=== PATIENT | male | born 1950 | race Caucasian/White ===

== ENCOUNTER → 2016-04-16 | Outpatient (REF) | payer MEDICARE ==
[~2016-04-16] MED LIST: ADV250-14 IH; ALBU0.63 IH; ALBU8.5H2 IH; ALBU8CC INH; ALPR.5T PO; ALPR0.25 PO; ASPI-504 PO; ASPI-860 PO; BUDE0.253 INH; BUDE0.5A5 IH; BUDE6HFA IH; CEFD300C9 PO; CODE-54 PO; CODE118S2 PO; CPR500T PO; DIGO125T PO; DIPH25TA31 PO; DOCU100C8 PO; FERR-74 PO; FLUT1DIS3 IH; FRS325T PO; FURO20TA4 PO; HYDR-2013 PO; IMMODIUM PO; IPRA0.2S50 IH; IPRA3AMP11 INH; ISM30TCR PO; LOPE1LIQ7 PO; LOPE2CAP29 PO; LVT.05T PO; METR500T PO; METR500T17 PO; NF-XOP-HFA INH; NITR0.4T SL; NIVO100V IV; OMEP20CA6 PO; ONDA8TAB6 SL; PHEN300C4 PO; PHEN50TA4 PO; PHN100C PO; POTA-57 PO; PRAS10TA6 PO; PRD10T PO; PRD20T PO; PRIM250T PO; PRIM50TA PO; PRIMIDONE PO; PRV20T PO; TIOT18CA IH; VENL150T PO; VENL225T PO; VENL75TA6 PO; VNL75CCR PO; WARF10TA PO; WARF2TAB PO; WARF2TAB6 PO; WARF4TAB PO; WARF5TAB PO; WARF5TAB6 PO; WARF6TAB6 PO; WARF7.5T PO; WRF5T PO
[2016-04-16 16:58] LABS: MEAN CORPUSCULAR HGB CONC 33.5 g/dL (31.0-37.0); PLATELET COUNT 270 10^3uL (150-450); WHITE BLOOD COUNT 6.24 10^3uL (4.0-11.0)
[2016-04-16 17:18] LABS: MEAN CORPUSCULAR HEMOGLOBIN 32.7 PG (26.0-34.0); MEAN CORPUSCULAR VOLUME 98 FL (80-100)
[2016-04-16 17:26] LABS: BAND NEUTROPHILS % 0 % (0-6); EOSINOPHILS % 4 % (0-4); MONOCYTES # 0.6 #; MONOCYTES % 10 % (3-11); RBC MORPH NORMAL (NORMAL); SEGMENTED NEUTROPHILS % 70 % (51-67); TOTAL CELLS COUNTED 100
== END ==
LOC: LAB 13:07
PROVIDERS: ATTEND Internal Medicine Hematology & Oncology
DX: C34.12 Malignant neoplasm of upper lobe, left bronchus or lung (principal)
CPT/HCPCS: 85007; 85027

== ENCOUNTER → 2016-04-23 | Outpatient (REF) | payer MEDICARE ==
[2016-04-23 15:11] LABS: WHITE BLOOD COUNT 6.02 10^3uL (4.0-11.0)
[2016-04-23 15:12] LABS: MEAN CORPUSCULAR HGB CONC 34.2 g/dL (31.0-37.0); MEAN CORPUSCULAR VOLUME 97 FL (80-100); MEAN PLATELET VOLUME 10.2 FL (6.0-9.5); PLATELET COUNT 233 10^3uL (150-450)
[2016-04-23 15:22] LABS: ALBUMIN 4.3 g/dL (3.4-5.0); ANION GAP 17.6 MEQ/L (3-15); CALCULATED IONIZED CALCIUM 3.7 mg/dL (3.8-4.6); TOTAL PROTEIN 8.3 g/dL (6.4-8.5)
[2016-04-23 15:27] LABS: MEAN CORPUSCULAR HEMOGLOBIN 33.2 PG (26.0-34.0)
[2016-04-23 15:41] LABS: BAND NEUTROPHILS % 6 % (0-6); SEGMENTED NEUTROPHILS % 58 % (51-67)
[2016-04-23 15:42] LABS: EOSINOPHILS % 1 % (0-4); LYMPHOCYTES # 1.3 #; MONOCYTES # 0.8 #; MONOCYTES % 13 % (3-11); RBC MORPH NORMAL (NORMAL); TOTAL CELLS COUNTED 100
== END ==
LOC: LAB 13:47
PROVIDERS: ATTEND Internal Medicine Hematology & Oncology
DX: C34.12 Malignant neoplasm of upper lobe, left bronchus or lung (principal)
CPT/HCPCS: 80053; 82378; 85007; 85027

== ENCOUNTER 2016-04-26 19:32 | Emergency (ER) | payer MEDICARE ==
[~2016-04-26] VITALS: Ht 188 cm; Wt 88.2 kg
[~2016-04-26 19:32] MED LIST changes: -ADV250-14 IH; -ALBU0.63 IH; -ASPI-860 PO; -BUDE0.253 INH; -BUDE0.5A5 IH; -CODE-54 PO; -CPR500T PO; -IPRA0.2S50 IH; -IPRA3AMP11 INH; -LVT.05T PO; -METR500T17 PO; -NIVO100V IV; -PRD10T PO; -PRD20T PO; -VENL75TA6 PO; -WARF6TAB6 PO; -WRF5T PO
[2016-04-26] MEDS ORDERED: WARF6TAB6 PO (19:59)
[2016-04-26] MEDS ORDERED: PRD10T PO (20:00)
[2016-04-26] MEDS ORDERED: IPRA0.2S50 IH (20:00)
[2016-04-26] MEDS ORDERED: BUDE0.253 INH (20:01)
[2016-04-26] MEDS ORDERED: ASPI-860 PO (20:01)
[2016-04-26] MEDS ORDERED: ALBU0.63 IH (20:01)
[2016-04-26 20:34] LABS: BASOPHILS % (AUTO) 0 % (0-2); EOSINOPHILS % (AUTO) 1 % (0-4); LYMPHOCYTES # (AUTO) 1.2 X10^3; MEAN CORPUSCULAR HGB CONC 33.4 g/dL (31.0-37.0); MEAN CORPUSCULAR VOLUME 97 FL (80-100); MEAN PLATELET VOLUME 10.2 FL (6.0-9.5); MONOCYTES # (AUTO) 0.4 X10^3; MONOCYTES % (AUTO) 7 % (3-11); NEUTROPHILS # (AUTO) 4.4 X10^3; NEUTROPHILS % (AUTO) 73 % (51-67); PLATELET COUNT 204 10^3uL (150-450); WHITE BLOOD COUNT 6.03 10^3uL (4.0-11.0)
[2016-04-26 20:38] LABS: MEAN CORPUSCULAR HEMOGLOBIN 32.3 PG (26.0-34.0)
--- NOTE | 2016-04-26 20:59 | Diagnostic Imaging Report ---
INDICATION: Cough and shortness of breath. History of lungs CA. EXAMINATION: Two views of the chest were obtained. COMPARISON: 02/22/2016. FINDINGS: Median sternotomy changes are again noted. Surgical changes are present with volume loss in the left upper lung with left apical pleural scarring. Left lower lung is well aerated and clear. Right lung is well aerated and clear. There are no pleural effusions. The heart is not enlarged. No evidence of pulmonary edema. Port-A-Cath on the left remains in good position. IMPRESSION: Postoperative changes with left superhilar fullness and left apical scarring again noted. No acute change is demonstrated. Dictated by: Dictated on workstation # [id number]
[2016-04-26 21:31] VITALS: BP 123/64
[2016-06-12] MEDS ORDERED: WRF5T PO (16:21)
[2016-06-12] MEDS ORDERED: VENL75TA6 PO (16:21)
[2016-06-12] MEDS ORDERED: PRD20T PO (16:21)
[2016-06-12] MEDS ORDERED: CODE-54 PO (16:21)
[2016-06-12] MEDS ORDERED: IPRA3AMP11 INH (16:21)
[2016-06-12] MEDS ORDERED: LVT.05T PO (16:21)
[2016-06-12] MEDS ORDERED: BUDE0.5A5 IH (16:21)
[2016-06-12] MEDS ORDERED: NIVO100V IV (16:21)
[2016-06-12] MEDS ORDERED: ADV250-14 IH (16:21)
[2016-06-12] MEDS ORDERED: ISM30TCR PO (16:21)
[2016-06-14] MEDS ORDERED: CPR500T PO (14:42)
[2016-06-14] MEDS ORDERED: METR500T17 PO (14:42)
== END 2016-04-26 21:31 | disposition home or self-care (01) ==
LOC: ED 19:34
DX: R04.0 Epistaxis (principal); R04.2 Hemoptysis; Z79.899 Other long term (current) drug therapy; C34.90 Malignant neoplasm of unspecified part of unspecified bronchus or lung
CPT/HCPCS: 36415; 71020; 85025; 85610; 99283

== ENCOUNTER → 2016-04-30 | Outpatient (REF) | payer MEDICARE ==
[~2016-04-30] MED LIST changes: +ADV250-14 IH; +ALBU0.63 IH; +ASPI-860 PO; +BUDE0.253 INH; +BUDE0.5A5 IH; +CODE-54 PO; +CPR500T PO; +IPRA0.2S50 IH; +IPRA3AMP11 INH; +LVT.05T PO; +METR500T17 PO; +NIVO100V IV; +PRD10T PO; +PRD20T PO; +VENL75TA6 PO; +WARF6TAB6 PO; +WRF5T PO
[2016-04-30 18:19] LABS: MEAN CORPUSCULAR HGB CONC 33.9 g/dL (31.0-37.0); MEAN CORPUSCULAR VOLUME 97 FL (80-100); MEAN PLATELET VOLUME 10.5 FL (6.0-9.5); PLATELET COUNT 230 10^3uL (150-450); WHITE BLOOD COUNT 3.75 10^3uL (4.0-11.0)
[2016-04-30 18:25] LABS: MEAN CORPUSCULAR HEMOGLOBIN 32.9 PG (26.0-34.0)
[2016-04-30 18:26] LABS: BAND NEUTROPHILS % 5 % (0-6); EOSINOPHILS % 2 % (0-4); LYMPHOCYTES # 0.8 #; MONOCYTES # 0.2 #; MONOCYTES % 6 % (3-11); SEGMENTED NEUTROPHILS % 66 % (51-67); TOTAL CELLS COUNTED 100
[2016-04-30 18:28] LABS: RBC MORPH NORMAL (NORMAL)
== END ==
LOC: LAB 16:43
PROVIDERS: ATTEND Internal Medicine Hematology & Oncology
DX: C34.12 Malignant neoplasm of upper lobe, left bronchus or lung (principal)
CPT/HCPCS: 85007; 85027

== ENCOUNTER → 2016-05-06 | Outpatient (REF) | payer MEDICARE ==
[2016-05-06 13:44] LABS: MEAN CORPUSCULAR HGB CONC 34.1 g/dL (31.0-37.0); MEAN CORPUSCULAR VOLUME 96 FL (80-100); MEAN PLATELET VOLUME 10.3 FL (6.0-9.5); PLATELET COUNT 309 10^3uL (150-450); WHITE BLOOD COUNT 5.37 10^3uL (4.0-11.0)
[2016-05-06 13:47] LABS: MEAN CORPUSCULAR HEMOGLOBIN 32.7 PG (26.0-34.0)
[2016-05-06 13:49] LABS: BAND NEUTROPHILS % 0 % (0-6); EOSINOPHILS % 1 % (0-4); LYMPHOCYTES # 1.3 #; MONOCYTES # 0.3 #; MONOCYTES % 5 % (3-11); RBC MORPH NORMAL (NORMAL); SEGMENTED NEUTROPHILS % 70 % (51-67); TOTAL CELLS COUNTED 100
== END ==
LOC: LAB 13:25
PROVIDERS: ATTEND Internal Medicine Hematology & Oncology
DX: I48.91 Unspecified atrial fibrillation (principal); C34.12 Malignant neoplasm of upper lobe, left bronchus or lung
CPT/HCPCS: 85007; 85027; 85610

== ENCOUNTER → 2016-05-14 | Outpatient (REF) | payer MEDICARE ==
[2016-05-14 17:53] LABS: MEAN PLATELET VOLUME 10.2 FL (6.0-9.5); PLATELET COUNT 248 10^3uL (150-450); WHITE BLOOD COUNT 4.99 10^3uL (4.0-11.0)
[2016-05-14 18:00] LABS: MEAN CORPUSCULAR VOLUME 100 FL (80-100)
[2016-05-14 18:31] LABS: ANISOCYTOSIS SLIGHT; BAND NEUTROPHILS % 4 % (0-6); EOSINOPHILS % 0 % (0-4); LYMPHOCYTES # 1.2 #; MONOCYTES # 0.1 #; MONOCYTES % 3 % (3-11); RBC MORPH SEE REFERENCE (NORMAL); SEGMENTED NEUTROPHILS % 68 % (51-67); TOTAL CELLS COUNTED 100
== END ==
LOC: LAB 16:11
PROVIDERS: ATTEND Internal Medicine Hematology & Oncology
DX: C34.12 Malignant neoplasm of upper lobe, left bronchus or lung (principal); I48.91 Unspecified atrial fibrillation
CPT/HCPCS: 85007; 85027; 85610

== ENCOUNTER → 2016-05-21 | Outpatient (REF) | payer MEDICARE ==
[2016-05-21 16:55] LABS: MEAN PLATELET VOLUME 10.6 FL (6.0-9.5); PLATELET COUNT 213 10^3uL (150-450); WHITE BLOOD COUNT 4.43 10^3uL (4.0-11.0)
[2016-05-21 17:06] LABS: MEAN CORPUSCULAR HEMOGLOBIN 33.8 PG (26.0-34.0); MEAN CORPUSCULAR VOLUME 99 FL (80-100)
[2016-05-21 17:13] LABS: BAND NEUTROPHILS % 2 % (0-6)
[2016-05-21 17:14] LABS: EOSINOPHILS % 0 % (0-4); LYMPHOCYTES # 1.3 #; MONOCYTES # 0.2 #; MONOCYTES % 5 % (3-11); SEGMENTED NEUTROPHILS % 64 % (51-67); TOTAL CELLS COUNTED 100
[2016-05-21 17:15] LABS: ANISOCYTOSIS SLIGHT; RBC MORPH SEE REFERENCE (NORMAL)
== END ==
LOC: LAB 16:20
PROVIDERS: ATTEND Internal Medicine Hematology & Oncology
DX: C34.12 Malignant neoplasm of upper lobe, left bronchus or lung (principal)
CPT/HCPCS: 85007; 85027

== ENCOUNTER → 2016-05-27 | Outpatient (REF) | payer MEDICARE ==
[2016-05-27 15:50] LABS: MEAN CORPUSCULAR HGB CONC 34.3 g/dL (31.0-37.0); MEAN PLATELET VOLUME 10.7 FL (6.0-9.5); PLATELET COUNT 219 10^3uL (150-450)
[2016-05-27 16:16] LABS: MEAN CORPUSCULAR HEMOGLOBIN 33.9 PG (26.0-34.0); MEAN CORPUSCULAR VOLUME 99 FL (80-100)
[2016-05-27 16:41] LABS: BAND NEUTROPHILS % 1 % (0-6); EOSINOPHILS % 1 % (0-4); LYMPHOCYTES # 1.1 #; MONOCYTES # 0.3 #; MONOCYTES % 10 % (3-11); SEGMENTED NEUTROPHILS % 57 % (51-67); TOTAL CELLS COUNTED 100
[2016-05-27 16:42] LABS: ANISOCYTOSIS SLIGHT; RBC MORPH SEE REFERENCE (NORMAL)
== END ==
LOC: LAB 15:34
PROVIDERS: ATTEND Internal Medicine Hematology & Oncology
DX: I62.9 Nontraumatic intracranial hemorrhage, unspecified (principal); C34.12 Malignant neoplasm of upper lobe, left bronchus or lung
CPT/HCPCS: 85007; 85027

== ENCOUNTER → 2016-06-04 | Outpatient (REF) | payer MEDICARE ==
[2016-06-04 13:40] LABS: MEAN CORPUSCULAR HGB CONC 34.3 g/dL (31.0-37.0); PLATELET COUNT 285 10^3uL (150-450); WHITE BLOOD COUNT 4.58 10^3uL (4.0-11.0)
[2016-06-04 14:16] LABS: MEAN CORPUSCULAR HEMOGLOBIN 34.5 PG (26.0-34.0); MEAN CORPUSCULAR VOLUME 101 FL (80-100)
[2016-06-04 14:17] LABS: BAND NEUTROPHILS % 8 % (0-6); EOSINOPHILS % 0 % (0-4); LYMPHOCYTES # 1.9 #; MONOCYTES # 0.6 #; MONOCYTES % 16 % (3-11); SEGMENTED NEUTROPHILS % 34 % (51-67); TOTAL CELLS COUNTED 100
[2016-06-04 14:20] LABS: ANISOCYTOSIS SLIGHT; RBC MORPH SEE REFERENCE (NORMAL)
== END ==
LOC: LAB 13:20
PROVIDERS: ATTEND Internal Medicine Cardiovascular Disease
DX: C34.12 Malignant neoplasm of upper lobe, left bronchus or lung (principal)
CPT/HCPCS: 85007; 85027

== ENCOUNTER → 2016-06-11 | Outpatient (REF) | payer MEDICARE ==
[2016-06-11 15:03] LABS: MEAN CORPUSCULAR HGB CONC 34.3 g/dL (31.0-37.0); MEAN PLATELET VOLUME 10.5 FL (6.0-9.5); PLATELET COUNT 238 10^3uL (150-450); WHITE BLOOD COUNT 9.19 10^3uL (4.0-11.0)
[2016-06-11 15:23] LABS: EOSINOPHILS % 0 % (0-4); LYMPHOCYTES # 1.1 #; MEAN CORPUSCULAR HEMOGLOBIN 34.4 PG (26.0-34.0); MEAN CORPUSCULAR VOLUME 100 FL (80-100); SEGMENTED NEUTROPHILS % 84 % (51-67)
[2016-06-11 15:25] LABS: ANISOCYTOSIS SLIGHT; BAND NEUTROPHILS % 1 % (0-6); MONOCYTES # 0.3 #; MONOCYTES % 3 % (3-11); RBC MORPH SEE REFERENCE (NORMAL); TOTAL CELLS COUNTED 100
== END ==
LOC: LAB 14:47
PROVIDERS: ATTEND Internal Medicine Hematology & Oncology
DX: I48.91 Unspecified atrial fibrillation (principal)
CPT/HCPCS: 85007; 85027; 85610

== ENCOUNTER 2016-06-12 10:35 | Inpatient (IN) | payer MEDICARE ==
[~2016-06-12] VITALS: Ht 188 cm; Wt 85.8 kg
[2016-06-12] MEDS ORDERED: D5 1/2 NS W/KCL 20 MEQ/L 1,000 ML IV SCH (12:38)
[2016-06-12] MEDS ORDERED: MAG HYDROX/AL HYDROX/SIMETH 200-200-20/5 ML (MAG-AL PLUS) 30 ML UDC PO PRN (12:40)
[2016-06-12] MEDS ORDERED: PROMETHAZINE HCL INJ 12.5 MG in SODIUM CHLORIDE 25 ML IV PRN (12:40)
[2016-06-12] MEDS ORDERED: CALCIUM CARBONATE CHEWABLE 300 MG (TUMS) TABLET PO PRN (12:40)
[2016-06-12] MEDS ORDERED: ONDANSETRON 2 MG/ML (Z0FRAN) 2 ML VIAL IV PRN (12:40)
[2016-06-12] MEDS ORDERED: ONDANSETRON 4 MG (ZOFRAN) ORAL DISSOLVE TAB PO PRN (12:40)
[2016-06-12] MEDS ORDERED: ACETAMINOPHEN 325 MG TAB (TYLENOL) PO PRN (12:40)
[2016-06-12 12:43] VITALS: BP 143/70
[2016-06-12 12:52] VITALS: BP 143/70
[2016-06-12] MEDS ORDERED: NS FLUSH 3 ML PRN IV (12:55)
[2016-06-12] MEDS ORDERED: HYDROmorphone 1 MG/ML (DILAUDID) SYRINGE IV PRN (13:30)
[2016-06-12 15:38] VITALS: BP 113/72
[2016-06-12] MEDS: CIPROFLOXACIN 400 MG/200 ML 200 ML IV SCH ×2 (16:15→22:55)
[2016-06-12] MEDS ORDERED: MAGNESIUM HYDROXIDE 80MG/ML (MILK OF MAGNESIA) 30 ML UDC PO PRN (16:45)
[2016-06-12] MEDS ORDERED: DOCUSATE SODIUM 100 MG (COLACE) CAP PO PRN (16:45)
[2016-06-12] MEDS: POLYETHYLENE GLYCOL 17 GM (MIRALAX) PACKET PO SCH (18:17)
[2016-06-12] MEDS: PRIMIDONE 50 MG PO SCH (18:29)
[2016-06-12] MEDS: FLUTICASONE/SALMETEROL HFA 115/21 MCG (ADVAIR) COMMON CANNISTER INH SCH (20:17)
[2016-06-12 20:32] VITALS: BP 110/63
[2016-06-12] MEDS: PRAVASTATIN 20 MG (PRAVACHOL) TABLET PO SCH (20:59)
[2016-06-12] MEDS: PHENYTOIN ER 100 MG (DILANTIN) CAPSULE PO SCH (20:59)
[2016-06-13 00:17] VITALS: BP 114/67
[2016-06-13 04:07] VITALS: BP 125/50
[2016-06-13] MEDS: LEVOTHYROXINE 50 MCG (LEVOTHROID) TABLET PO SCH (06:03)
[2016-06-13 06:24] LABS: BASOPHILS % (AUTO) 0 % (0-2); EOSINOPHILS # (AUTO) 0.1 10^3uL; EOSINOPHILS % (AUTO) 1 % (0-4); LYMPHOCYTES # (AUTO) 0.8 X10^3; MEAN CORPUSCULAR HGB CONC 34.2 g/dL (31.0-37.0); MEAN PLATELET VOLUME 10.5 FL (6.0-9.5); MONOCYTES # (AUTO) 0.4 X10^3; MONOCYTES % (AUTO) 9 % (3-11); NEUTROPHILS # (AUTO) 3.1 X10^3; NEUTROPHILS % (AUTO) 70 % (51-67); PLATELET COUNT 242 10^3uL (150-450); WHITE BLOOD COUNT 4.36 10^3uL (4.0-11.0)
[2016-06-13 06:47] LABS: MEAN CORPUSCULAR VOLUME 99 FL (80-100)
[2016-06-13 06:51] LABS: ALBUMIN 3.7 g/dL (3.4-5.0); ANION GAP 10.8 MEQ/L (3-15); CALCULATED IONIZED CALCIUM 3.7 mg/dL (3.8-4.6); TOTAL PROTEIN 7.6 g/dL (6.4-8.5)
[2016-06-13 07:57] VITALS: BP 101/61
[2016-06-13] MEDS: FLUTICASONE/SALMETEROL HFA 115/21 MCG (ADVAIR) COMMON CANNISTER INH SCH ×2 (09:11→20:07)
[2016-06-13] MEDS: NS FLUSH 3 ML DAILY IV SCH (10:00)
[2016-06-13] MEDS: ISOSORBIDE MONONITRATE 30 MG (IMDUR) TAB PO SCH (10:07)
[2016-06-13] MEDS: POLYETHYLENE GLYCOL 17 GM (MIRALAX) PACKET PO SCH (10:07)
[2016-06-13] MEDS: PRIMIDONE 50 MG PO SCH ×2 (10:07→18:08)
[2016-06-13] MEDS: VENlafaxine XR 75 MG (EFFEXOR XR) CAP PO SCH (10:07)
[2016-06-13] MEDS: CIPROFLOXACIN 400 MG/200 ML 200 ML IV SCH ×2 (10:08→20:38)
[2016-06-13] MEDS: NS FLUSH 10 ML PRN IV ×2 (10:08→14:43)
[2016-06-13] MEDS ORDERED: ALBUTEROL HFA (VENTOLIN HFA) COMMON CANNISTER IH PRN (10:55)
[2016-06-13] MEDS ORDERED: NITROGLYCERIN SUBLINGUAL 0.4 MG (NITROQUICK) TABLET SL PRN (10:55)
[2016-06-13 11:27] VITALS: BP 106/62
[2016-06-13 16:39] VITALS: BP 113/66
[2016-06-13] MEDS ORDERED: warFARin 5 MG (COUMADIN) TAB PO SCH (17:00)
[2016-06-13] MEDS: PHENYTOIN ER 100 MG (DILANTIN) CAPSULE PO SCH (20:39)
[2016-06-13] MEDS: PRAVASTATIN 20 MG (PRAVACHOL) TABLET PO SCH (20:39)
[2016-06-13] MEDS ORDERED: SODIUM CHLORIDE 100 ML ONE (20:43)
[2016-06-13] MEDS ORDERED: BUDESONIDE NEBS 0.5 MG/2ML (PULMICORT) AMP INH SCH (21:00)
[2016-06-13] MEDS ORDERED: ALPRAZolam 0.5 MG (XANAX) TAB PO SCH (21:00)
[2016-06-13] MEDS ORDERED: diphenhydrAMINE 25 MG (BENADRYL) TABLET PO SCH (21:00)
[2016-06-14 00:02] VITALS: BP 100/52
[2016-06-14] MEDS ORDERED: PANTOPRAZOLE 40 MG (PROTONIX) TAB PO ONE (05:53)
[2016-06-14] MEDS: LEVOTHYROXINE 50 MCG (LEVOTHROID) TABLET PO SCH (06:00)
[2016-06-14] MEDS: NS FLUSH 10 ML PRN IV ×4 (06:00→13:37)
[2016-06-14] MEDS ORDERED: PANTOPRAZOLE 40 MG (PROTONIX) TAB PO SCH (07:00)
[2016-06-14 08:00] VITALS: BP 132/70
[2016-06-14] MEDS: FLUTICASONE/SALMETEROL HFA 115/21 MCG (ADVAIR) COMMON CANNISTER INH SCH (08:00)
[2016-06-14] MEDS: CIPROFLOXACIN 400 MG/200 ML 200 ML IV SCH (08:55)
[2016-06-14] MEDS: POLYETHYLENE GLYCOL 17 GM (MIRALAX) PACKET PO SCH (08:55)
[2016-06-14] MEDS: VENlafaxine XR 75 MG (EFFEXOR XR) CAP PO SCH (08:57)
[2016-06-14] MEDS: ISOSORBIDE MONONITRATE 30 MG (IMDUR) TAB PO SCH (08:57)
[2016-06-14] MEDS: PRIMIDONE 50 MG PO SCH (08:57)
[2016-06-14] MEDS ORDERED: PRASUGREL 5 MG PO SCH (09:00)
[2016-06-14] MEDS ORDERED: TIOTROPIUM 18 MCG/CAP (SPIRIVA) INHALER (5 CAPS) IH SCH (09:00)
[2016-06-14] MEDS ORDERED: FERROUS SULFATE 325 MG (IRON) TABLET PO SCH (09:00)
[2016-06-14] MEDS: NS FLUSH 3 ML DAILY IV SCH (09:00)
[2016-06-14 13:49] LABS: BASOPHILS % (AUTO) 0 % (0-2); EOSINOPHILS # (AUTO) 0.1 10^3uL; EOSINOPHILS % (AUTO) 1 % (0-4); LYMPHOCYTES # (AUTO) 0.9 X10^3; MEAN CORPUSCULAR HGB CONC 34.3 g/dL (31.0-37.0); MONOCYTES # (AUTO) 0.6 X10^3; MONOCYTES % (AUTO) 12 % (3-11); NEUTROPHILS % (AUTO) 67 % (51-67); PLATELET COUNT 278 10^3uL (150-450); WHITE BLOOD COUNT 4.55 10^3uL (4.0-11.0)
[2016-06-14 13:50] LABS: MEAN CORPUSCULAR HEMOGLOBIN 34.9 PG (26.0-34.0); MEAN CORPUSCULAR VOLUME 102 FL (80-100)
== END 2016-06-14 15:25 | disposition home or self-care (01) | DRG 394 ==
LOC: RAD 10:35 → MED/SURG 12:28
PROVIDERS: ADMIT Internal Medicine; ATTEND Internal Medicine
DX: K35.80 Unspecified acute appendicitis (principal); C78.01 Secondary malignant neoplasm of right lung; C78.7 Secondary malignant neoplasm of liver and intrahepatic bile duct; K59.03 Drug induced constipation; E86.0 Dehydration; I35.1 Nonrheumatic aortic (valve) insufficiency; I48.91 Unspecified atrial fibrillation; J44.9 Chronic obstructive pulmonary disease, unspecified; I25.10 Atherosclerotic heart disease of native coronary artery without angina pectoris; G40.909 Epilepsy, unspecified, not intractable, without status epilepticus; I10 Essential (primary) hypertension; T45.1X5A Adverse effect of antineoplastic and immunosuppressive drugs, initial encounter; Z99.81 Dependence on supplemental oxygen; I25.2 Old myocardial infarction; Z79.01 Long term (current) use of anticoagulants; Z85.118 Personal history of other malignant neoplasm of bronchus and lung; Z95.5 Presence of coronary angioplasty implant and graft; Z85.828 Personal history of other malignant neoplasm of skin; Z95.1 Presence of aortocoronary bypass graft
CPT/HCPCS: 36415; 71020; 74178; 80053; 85025; 85610; 86140; 87040; 87150; 87205; 94640; 94760

== ENCOUNTER → 2016-06-12 | Outpatient (REF) | payer MEDICARE ==
[2016-06-12 10:54] LABS: BASOPHILS % (AUTO) 0 % (0-2); EOSINOPHILS # (AUTO) 0.1 10^3uL; EOSINOPHILS % (AUTO) 1 % (0-4); LYMPHOCYTES # (AUTO) 1.1 X10^3; MEAN CORPUSCULAR HEMOGLOBIN 33.9 PG (26.0-34.0); MEAN CORPUSCULAR HGB CONC 33.9 g/dL (31.0-37.0); MEAN CORPUSCULAR VOLUME 100 FL (80-100); MEAN PLATELET VOLUME 10.3 FL (6.0-9.5); MONOCYTES # (AUTO) 0.5 X10^3; MONOCYTES % (AUTO) 7 % (3-11); NEUTROPHILS # (AUTO) 5.1 X10^3; NEUTROPHILS % (AUTO) 76 % (51-67); PLATELET COUNT 241 10^3uL (150-450)
[2016-06-12 10:59] LABS: ALBUMIN 4.1 g/dL (3.4-5.0); ALKALINE PHOSPHATASE 158 U/L (38-126); BUN/CREATININE RATIO 19 (10-20); CALCULATED IONIZED CALCIUM 3.7 mg/dL (3.8-4.6)
[2016-06-12 13:03] LABS: ERYTHROCYTE SEDIMENTATION RT* 55 mm/hr (0-19)
== END ==
LOC: LAB 10:18
PROVIDERS: ATTEND Nurse Practitioner Family
DX: R10.31 Right lower quadrant pain (principal)
CPT/HCPCS: 80053; 85025; 85652; 86140

== ENCOUNTER → 2016-06-16 | Outpatient (REF) | payer MEDICARE ==
[2016-06-16 13:42] LABS: MEAN PLATELET VOLUME 10.2 FL (6.0-9.5); PLATELET COUNT 263 10^3uL (150-450); WHITE BLOOD COUNT 4.02 10^3uL (4.0-11.0)
[2016-06-16 13:43] LABS: ALBUMIN 3.8 g/dL (3.4-5.0); ANION GAP 15.6 MEQ/L (3-15); CALCULATED IONIZED CALCIUM 3.8 mg/dL (3.8-4.6); TOTAL PROTEIN 7.3 g/dL (6.4-8.5)
[2016-06-16 13:56] LABS: MEAN CORPUSCULAR HEMOGLOBIN 34.3 PG (26.0-34.0); MEAN CORPUSCULAR VOLUME 101 FL (80-100)
[2016-06-16 14:12] LABS: ANISOCYTOSIS SLIGHT; BAND NEUTROPHILS % 0 % (0-6); EOSINOPHILS % 0 % (0-4); LYMPHOCYTES # 1.5 #; MONOCYTES # 0.5 #; MONOCYTES % 12 % (3-11); RBC MORPH SEE REFERENCE (NORMAL); SEGMENTED NEUTROPHILS % 51 % (51-67); TOTAL CELLS COUNTED 100
== END ==
LOC: LAB 12:48
PROVIDERS: ATTEND Internal Medicine Hematology & Oncology
DX: C34.12 Malignant neoplasm of upper lobe, left bronchus or lung (principal); I48.91 Unspecified atrial fibrillation
CPT/HCPCS: 80053; 82378; 85007; 85027; 85610

== ENCOUNTER → 2016-06-25 | Outpatient (REF) | payer MEDICARE ==
[2016-06-25 14:28] LABS: MEAN CORPUSCULAR HGB CONC 33.3 g/dL (31.0-37.0); MEAN PLATELET VOLUME 10.2 FL (6.0-9.5); PLATELET COUNT 319 10^3uL (150-450); WHITE BLOOD COUNT 5.31 10^3uL (4.0-11.0)
[2016-06-25 14:31] LABS: MEAN CORPUSCULAR HEMOGLOBIN 33.2 PG (26.0-34.0); MEAN CORPUSCULAR VOLUME 100 FL (80-100)
[2016-06-25 14:46] LABS: ALBUMIN 4.2 g/dL (3.4-5.0); CALCULATED IONIZED CALCIUM 3.7 mg/dL (3.8-4.6); MAGNESIUM* 2.2 mg/dL (1.6-2.3); PHOSPHORUS 3.8 mg/dL (2.4-4.9); TOTAL PROTEIN 8.2 g/dL (6.4-8.5)
[2016-06-25 15:03] LABS: BAND NEUTROPHILS % 1 % (0-6); EOSINOPHILS % 0 % (0-4); LYMPHOCYTES # 0.9 #; MONOCYTES # 0.2 #; MONOCYTES % 3 % (3-11); SEGMENTED NEUTROPHILS % 79 % (51-67); TOTAL CELLS COUNTED 100
[2016-06-25 15:04] LABS: ANISOCYTOSIS SLIGHT; RBC MORPH SEE REFERENCE (NORMAL)
[2016-06-25 15:05] LABS: POIKILOCYTOSIS SLIGHT
== END ==
LOC: LAB 14:14
PROVIDERS: ATTEND Internal Medicine Hematology & Oncology
DX: C34.12 Malignant neoplasm of upper lobe, left bronchus or lung (principal); I48.2 Chronic atrial fibrillation
CPT/HCPCS: 80053; 82378; 83615; 83735; 84100; 85007; 85027; 85610

== ENCOUNTER → 2016-06-25 | Outpatient (CLI) | payer MEDICARE | LOC: RAD 08:20 | PROVIDERS: ATTEND Internal Medicine Hematology & Oncology | DX: R93.5 Abnormal findings on diagnostic imaging of other abdominal regions, including retroperitoneum (principal) | CPT/HCPCS: 70470; Q9967 ==